=== PATIENT | female | born 1960 | race Hispanic/Latino ===

== ENCOUNTER 2019-11-29 | Emergency (ER) | payer SELFPAY ==
[~2019-11-29] MED LIST: ADVIL200 MG OR; AFRIN 12 HOUR0.05 %; AMOXICILLIN500 MG PO; ATIVAN0.5 MG PO; BACTRIM1 TAB; BL IBUPROFEN200 MG PO; CIPROFLOXACN500 MG PO; COLACE100 MG PO; FLONASE NASAL50 MCG; HYDROXYZ HCL25 MG PO; LORTAB 5 OR; LOSARTAN POT50 MG PO; NAPROSYN500 MG OR; NAPROSYN500 MG PO; NEO SYNEPHRI NAB; SINUCLEANS1 NAB; ULTRAM50 M1 PO; ZYRTEC-D AL1 OR
[2019-11-29 10:10] LABS: GFR > 60 ML/MIN (>=60 (CALC)); GFR FOR AFR.AMER. > 60 ML/MIN (>=60 (CALC))
[2019-11-29 10:20] LABS: HEMATOCRIT 42.7 % (37.0-47.0); HEMOGLOBIN 14.1 g/dl (12.0-16.0); IMMATURE GRANULOCYTES 0.3 % (0.0-5.0); MEAN CELL VOLUME 93.2 fL CALC (80.0-100.0); MEAN CORPUSCULAR HGB 30.8 pG CALC (26.0-32.0); NEUT# 6.97 thou/uL (2.00-7.15); RED BLOOD COUNT 4.58 mill/uL (4.20-5.60); RED CELL DISTRI WIDTH 13.5 % (11.5-15.5)
[2019-11-29 10:38] LABS: ANION GAP 14 (6-22 (CALC)); BUN 16 mg/dL (7-17); BUN/CREATININE RATIO 30 (12-20 (CALC)); CARBON DIOXIDE 23 mmol/l (22-30); CHLORIDE 106 mmol/l (95-108); CREATININE 0.5 mg/dL (0.5-1.0); GFR > 60 ML/MIN (>=60 (CALC)); GFR FOR AFR.AMER. > 60 ML/MIN (>=60 (CALC)); POTASSIUM 4.4 mmol/l (3.5-5.1); SODIUM 139 mmol/l (137-146)
== END 2019-11-29 13:42 | disposition short-term general hospital (02) | DRG 299 ==
PROVIDERS: Family Medicine
DX: I82.431 Acute embolism and thrombosis of right popliteal vein (principal); I26.99 Other pulmonary embolism without acute cor pulmonale; I10 Essential (primary) hypertension
CPT/HCPCS: J1644; Q9967

== ENCOUNTER 2020-11-11 22:08 | Emergency (ER) | payer SELFPAY ==
[~2020-11-11] VITALS: Ht 160 cm; Wt 97.0 kg
[2020-11-11 22:44] LABS: HEMATOCRIT 40.9 % (37.0-47.0); HEMOGLOBIN 13.4 g/dl (12.0-16.0); IMMATURE GRANULOCYTES 0.5 % (0.0-5.0); MEAN CELL VOLUME 93.2 fL CALC (80.0-100.0); MEAN CORPUSCULAR HGB 30.5 pG CALC (26.0-32.0); MEAN CORPUSCULAR HGB CONC 32.8 g/dL CAL (32.0-36.0); NEUT# 6.7 thou/uL (2.00-7.15); RED BLOOD COUNT 4.39 mill/uL (4.20-5.60); RED CELL DISTRI WIDTH 14.3 % (11.5-15.5)
[2020-11-11 23:02] LABS: ALKALINE PHOSPHATASE 80 u/l (38-126); BILIRUBIN, TOTAL 0.5 mg/dL (0.0-1.4); BUN 15 mg/dL (7-17); BUN/CREATININE RATIO 19 (12-20 (CALC)); CHLORIDE 104 mmol/l (95-108); CREATININE 0.8 mg/dL (0.5-1.0); ETHYL ALCOHOL 0 mg/dl (0-30); GFR > 60 ML/MIN (>=60 (CALC)); GFR FOR AFR.AMER. > 60 ML/MIN (>=60 (CALC)); POTASSIUM 4.1 mmol/l (3.5-5.1); SODIUM 139 mmol/l (137-146); TOTAL PROTEIN 7.3 g/dL (6.3-8.2)
[2020-11-11 23:04] LABS: ACT PARTIAL THROMBO TIME 25.2 SECONDS (20.0-32.5); PROTHROMBIN TIME 9.8 SECONDS (9.0-12.5)
[2020-11-11 23:05] LABS: ANION GAP 11 (6-22 (CALC)); CARBON DIOXIDE 28 mmol/l (22-30); SGOT/AST 44 u/l (14-36)
[2020-11-11 23:45] VITALS: BP 117/57
[2020-11-11] MEDS ORDERED: MEDDOSEPAK PO (23:56)
[2020-11-12] MEDS ORDERED: LIPITOR40 M1 PO (00:07)
[2020-11-12] MEDS ORDERED: ELIQUIS5 MG PO (00:07)
== END 2020-11-12 00:24 | disposition home or self-care (01) | DRG 880 ==
LOC: ED 22:08
DX: F41.9 Anxiety disorder, unspecified (principal); T78.40XA Allergy, unspecified, initial encounter; X58.XXXA Exposure to other specified factors, initial encounter; I10 Essential (primary) hypertension
CPT/HCPCS: J2060

== ENCOUNTER 2021-04-05 11:55 | Emergency (ER) | payer OTHER, MEDICAID ==
[~2021-04-05] VITALS: Ht 160 cm; Wt 98.0 kg
[~2021-04-05 11:55] MED LIST changes: +ELIQUIS5 MG PO; +LIPITOR40 M1 PO; +MEDDOSEPAK PO
[2021-04-05 13:03] LABS: GFR > 60 ML/MIN (>=60 (CALC)); GFR FOR AFR.AMER. > 60 ML/MIN (>=60 (CALC))
[2021-04-05 13:12] LABS: HEMATOCRIT 42.5 % (37.0-47.0); HEMOGLOBIN 13.6 g/dl (12.0-16.0); IMMATURE GRANULOCYTES 0.3 % (0.0-5.0); MEAN CELL VOLUME 96.4 fL CALC (80.0-100.0); MEAN CORPUSCULAR HGB 30.8 pG CALC (26.0-32.0); NEUT# 6.19 thou/uL (2.00-7.15); RED BLOOD COUNT 4.41 mill/uL (4.20-5.60); RED CELL DISTRI WIDTH 13.6 % (11.5-15.5)
[2021-04-05 13:25] LABS: ALBUMIN 4.1 g/dL (3.2-5.0); ALKALINE PHOSPHATASE 85 u/l (38-126); ANION GAP 10 (6-22 (CALC)); BILIRUBIN, TOTAL 0.6 mg/dL (0.0-1.4); BUN 14 mg/dL (7-17); BUN/CREATININE RATIO 23 (12-20 (CALC)); CARBON DIOXIDE 28 mmol/l (22-30); CHLORIDE 103 mmol/l (95-108); CREATININE 0.6 mg/dL (0.5-1.0); GFR > 60 ML/MIN (>=60 (CALC)); GFR FOR AFR.AMER. > 60 ML/MIN (>=60 (CALC)); LIPASE 54 u/l (23-300); POTASSIUM 4.1 mmol/l (3.5-5.1); SGOT/AST 45 u/l (14-36); SODIUM 137 mmol/l (137-146); TOTAL PROTEIN 8.1 g/dL (6.3-8.2)
[2021-04-05 15:12] VITALS: BP 141/72
== END 2021-04-05 15:20 | disposition home or self-care (01) | DRG 552 ==
LOC: ED 11:55
PROVIDERS: Family Medicine
DX: M54.2 Cervicalgia (principal); R07.89 Other chest pain; I10 Essential (primary) hypertension; V49.50XA Passenger injured in collision with unspecified motor vehicles in traffic accident, initial encounter; Z86.718 Personal history of other venous thrombosis and embolism; Z86.711 Personal history of pulmonary embolism

== ENCOUNTER 2021-08-17 04:49 | Emergency (ER) | payer MEDICAID ==
[~2021-08-17] VITALS: Ht 160 cm; Wt 101.0 kg
[2021-08-17 05:39] LABS: URINE BILIRUBIN - DIPSTICK NEGATIVE (NEGATIVE); URINE BLOOD DIPSTICK NEGATIVE (NEGATIVE); URINE COLOR YELLOW; URINE GLUCOSE - DIPSTICK NEGATIVE (NEGATIVE); URINE KETONE NEGATIVE (NEGATIVE); URINE LEUK ESTERASE NEGATIVE (NEGATIVE); URINE PROTEIN - DIPSTICK NEGATIVE (NEG-TRACE); URINE UROBILINOGEN - DIPSTICK 0.2 E.U./dL (0.2)
[2021-08-17 05:41] LABS: URINE NITRITE - DIPSTICK NEGATIVE (Negative)
[2021-08-17 05:42] LABS: HEMATOCRIT 45.3 % (37.0-47.0); HEMOGLOBIN 14.4 g/dl (12.0-16.0); IMMATURE GRANULOCYTES 0.6 % (0.0-5.0); MEAN CELL VOLUME 96.8 fL CALC (80.0-100.0); MEAN CORPUSCULAR HGB 30.8 pG CALC (26.0-32.0); MEAN CORPUSCULAR HGB CONC 31.8 g/dL CAL (32.0-36.0); NEUT# 5.07 thou/uL (2.00-7.15); RED BLOOD COUNT 4.68 mill/uL (4.20-5.60); RED CELL DISTRI WIDTH 13.3 % (11.5-15.5)
[2021-08-17 05:57] LABS: ALBUMIN 4.1 g/dL (3.2-5.0); ALKALINE PHOSPHATASE 84 u/l (38-126); ANION GAP 11 (6-22 (CALC)); BILIRUBIN, TOTAL 0.5 mg/dL (0.0-1.4); BUN 16 mg/dL (7-17); BUN/CREATININE RATIO 25 (12-20 (CALC)); CARBON DIOXIDE 25 mmol/l (22-30); CHLORIDE 108 mmol/l (95-108); CREATININE 0.6 mg/dL (0.5-1.0); GFR > 60 ML/MIN (>=60 (CALC)); GFR FOR AFR.AMER. > 60 ML/MIN (>=60 (CALC)); POTASSIUM 4.4 mmol/l (3.5-5.1); SGOT/AST 20 u/l (14-36); SODIUM 139 mmol/l (137-146); TOTAL PROTEIN 7.7 g/dL (6.3-8.2)
[2021-08-17 05:59] LABS: D-DIMER 0.45 mg/L (0.19-0.60)
[2021-08-17 06:02] LABS: ACT PARTIAL THROMBO TIME 21.8 SECONDS (20.0-32.5); INTERNATIONAL NORMALIZED RATIO 0.9 RATIO (0.7-1.3); PROTHROMBIN TIME 9.6 SECONDS (9.0-12.5)
[2021-08-17 07:00] VITALS: BP 121/82
[2021-08-17] MEDS ORDERED: COLACE100 MG PO (09:09)
== END 2021-08-17 09:20 | disposition home or self-care (01) ==
LOC: ED 04:49
PROVIDERS: Family Medicine
DX: K62.5 Hemorrhage of anus and rectum (principal); I10 Essential (primary) hypertension; Z86.718 Personal history of other venous thrombosis and embolism; Z86.711 Personal history of pulmonary embolism; Z79.82 Long term (current) use of aspirin
CPT/HCPCS: Q9967

== ENCOUNTER 2021-09-29 08:35 | Day surgery (SDC) | payer BC, MEDICAID ==
[~2021-09-29 08:35] MED LIST changes: +AIRBORNE; +EQL ASPIRIN LOW81 M1 PO; +HAIR SKIN & NAI1 CHW; +MULTI ADULT GUM1 CHW; +OMEPRAZOLE DR40 MG PO
[2021-09-29 10:17] VITALS: BP 133/70
== END 2021-09-29 10:20 | disposition home or self-care (01) | DRG 395 ==
LOC: ENDO 08:35
PROVIDERS: ATTEND Surgery
PROC: 0DJD8ZZ Inspection of Lower Intestinal Tract, Via Natural or Artificial Opening Endoscopic (ICD-10-PCS; principal; 2021-09-29)
DX: K64.8 Other hemorrhoids (principal); K57.30 Diverticulosis of large intestine without perforation or abscess without bleeding

== ENCOUNTER 2023-04-13 17:57 | Observation (INO) | payer OTHER ==
[~2023-04-13] VITALS: Ht 157.5 cm; Wt 107.0 kg
[2023-04-13 19:40] LABS: BASO% 0.2 % (0-3); EOS% 2.9 % (0-8); HEMATOCRIT 46.1 % (37.0-47.0); HEMOGLOBIN 14.6 g/dl (12.0-16.0); IMMATURE GRANULOCYTES 0.2 % (0.0-5.0); MEAN CELL VOLUME 95.6 fL CALC (80.0-100.0); MEAN CORPUSCULAR HGB 30.3 pG CALC (26.0-32.0); MEAN CORPUSCULAR HGB CONC 31.7 g/dL CAL (32.0-36.0); MONO% 5.3 % (2-13); NEUT# 4.93 thou/uL (2.00-7.15); NEUT% 56.4 % (42-76); RED BLOOD COUNT 4.82 mill/uL (4.20-5.60); RED CELL DISTRI WIDTH 13.8 % (11.5-15.5)
[2023-04-13 19:54] LABS: PROTHROMBIN TIME 10.3 SECONDS (9.0-12.5)
[2023-04-13 20:00] LABS: ALBUMIN 4.4 g/dL (3.2-5.0); ALKALINE PHOSPHATASE 75 u/l (38-126); ANION GAP 13 (6-22 (CALC)); BILIRUBIN, TOTAL 0.7 mg/dL (0.02-1.3); BUN 15 mg/dL (7-17); BUN/CREATININE RATIO 20 (12-20 (CALC)); CARBON DIOXIDE 28 mmol/l (22-30); CHLORIDE 105 mmol/l (95-108); CREATININE 0.8 mg/dL (0.5-1.0); GFR FOR AFR.AMER. > 60 ML/MIN (>=60 (CALC)); GFR OTHER RACES > 60 ML/MIN (>=60 (CALC)); POTASSIUM 4.3 mmol/l (3.5-5.1); SGOT/AST 25 u/l (14-36); SODIUM 142 mmol/l (137-146)
[2023-04-13] MEDS ORDERED: TRULICITY3 MG/0.5 M SC (21:36)
[2023-04-13] MEDS ORDERED: LEVOTHYROXIN50 MC1 PO (21:37)
[2023-04-13] MEDS ORDERED: 24HR ALLERGY R180 MG PO (21:38)
[2023-04-13 23:15] VITALS: BP 155/95
[2023-04-14 04:00] VITALS: BP 104/46
[2023-04-14 06:06] LABS: BASO% 0.3 % (0-3); EOS% 3.7 % (0-8); HEMATOCRIT 43.6 % (37.0-47.0); HEMOGLOBIN 13.8 g/dl (12.0-16.0); IMMATURE GRANULOCYTES 0.1 % (0.0-5.0); LYMPH% 39.8 % (15-41); MEAN CELL VOLUME 95.6 fL CALC (80.0-100.0); MEAN CORPUSCULAR HGB 30.3 pG CALC (26.0-32.0); MEAN CORPUSCULAR HGB CONC 31.7 g/dL CAL (32.0-36.0); MONO% 5.7 % (2-13); NEUT# 3.73 thou/uL (2.00-7.15); NEUT% 50.4 % (42-76); RED BLOOD COUNT 4.56 mill/uL (4.20-5.60); RED CELL DISTRI WIDTH 14.1 % (11.5-15.5)
[2023-04-14 06:29] LABS: ALBUMIN 3.8 g/dL (3.2-5.0); ALKALINE PHOSPHATASE 59 u/l (38-126); ANION GAP 12 (6-22 (CALC)); BILIRUBIN, TOTAL 0.6 mg/dL (0.02-1.3); BUN 16 mg/dL (7-17); BUN/CREATININE RATIO 23 (12-20 (CALC)); CARBON DIOXIDE 25 mmol/l (22-30); CHLORIDE 106 mmol/l (95-108); CHOLESTEROL HDL RATIO 3.2 (<4.4 (CALC)); CREATININE 0.7 mg/dL (0.5-1.0); GFR FOR AFR.AMER. > 60 ML/MIN (>=60 (CALC)); GFR OTHER RACES > 60 ML/MIN (>=60 (CALC)); HDL CHOLESTEROL 40 mg/dL (39.0-59.0); POTASSIUM 3.9 mmol/l (3.5-5.1); SGOT/AST 23 u/l (14-36); SODIUM 140 mmol/l (137-146); TOTAL PROTEIN 6.7 g/dL (6.3-8.2); TOTAL TRIGLYCERIDES 128 mg/dl (0-149); VLDL CHOLESTROL 26 mg/dl (1-41 (CALC))
[2023-04-14] MEDS ORDERED: ELIQUIS5 MG PO (06:37)
[2023-04-14 06:41] LABS: CALCULATED LDLCHOLESTEROL 62 mg/dL (62-129 (CALC)); TOTAL CHOLESTEROL 128 mg/dl (0-199)
[2023-04-14 07:29] VITALS: BP 112/66
[2023-04-14 11:08] VITALS: BP 140/84
[2023-04-14] MEDS ORDERED: AMLODIPINE BESYL5 MG PO (11:28)
[2023-04-14] MEDS ORDERED: MEDDOSEPAK PO (11:28)
== END 2023-04-14 12:43 | disposition home or self-care (01) ==
LOC: ED 17:57 → ED-I 20:47 → ED 21:01 → MS2 21:02
PROVIDERS: Family Medicine; Nurse Practitioner Family; ADMIT Internal Medicine; ATTEND Internal Medicine
DX: R20.0 Anesthesia of skin (principal); R20.2 Paresthesia of skin; I10 Essential (primary) hypertension; E03.9 Hypothyroidism, unspecified; Z86.718 Personal history of other venous thrombosis and embolism; Z86.711 Personal history of pulmonary embolism; Z79.82 Long term (current) use of aspirin
CPT/HCPCS: G0378

== ENCOUNTER 2024-08-03 15:24 | Emergency (ER) | payer OTHER ==
[~2024-08-03] VITALS: Ht 157.5 cm; Wt 110.2 kg
[2024-08-03] VITALS (8 sets, daily range): BP systolic 128–197; BP diastolic 84–104
[~2024-08-03 15:24] MED LIST changes: +24HR ALLERGY R180 MG PO; +AMLODIPINE BESYL5 MG PO; +LEVOTHYROXIN50 MC1 PO; +NAPROXEN500 MG PO; +TRULICITY3 MG/0.5 M SC
[2024-08-03] MEDS ORDERED: KETOROLAC TROMETHAMINE 30 MG/ML SDV IM ONE (15:40)
[2024-08-03] MEDS ORDERED: DOXYCYCLINE100 MG PO (16:52)
== END 2024-08-03 17:06 | disposition home or self-care (01) ==
LOC: ED 15:24
DX: M79.644 Pain in right finger(s) (principal); I10 Essential (primary) hypertension; E03.9 Hypothyroidism, unspecified; Z86.718 Personal history of other venous thrombosis and embolism; Z86.711 Personal history of pulmonary embolism